=== PATIENT | male | born 2000 | race African-American/Black ===

== ENCOUNTER → 2021-08-25 | Day surgery (SDC) | payer BC ==
[~2021-08-25] MED LIST: BUPIVACAINE HCL 0.25% 10ML MPF VIAL INJ ONE; HYDROCODON-ACE1 EAC9 PO; LIDOCAINE 2% /EPINEPHRINE 20 ML SDV INJ ONE; ONDANSETRON HCL INJ 2MG/ML 2ML 2 MG/ML VIAL ONE; TYLENOL WITH CODEINE PO
[2021-08-25 18:30] VITALS: BP 152/86
== END | disposition home or self-care (01) ==
LOC: OR 06:58
PROVIDERS: ATTEND Orthopaedic Surgery
DX: S83.512A Sprain of anterior cruciate ligament of left knee, initial encounter (principal); S83.242A Other tear of medial meniscus, current injury, left knee, initial encounter; S83.282A Other tear of lateral meniscus, current injury, left knee, initial encounter; M65.9 Synovitis and tenosynovitis, unspecified; Z72.0 Tobacco use; X58.XXXA Exposure to other specified factors, initial encounter; Y93.67 Activity, basketball; Y92.009 Unspecified place in unspecified non-institutional (private) residence as the place of occurrence of the external cause; Y99.8 Other external cause status; Z01.812 Encounter for preprocedural laboratory examination; Z20.822 Contact with and (suspected) exposure to COVID-19
CPT/HCPCS: 0223U; 29879; 29882; 29888; 36415; C1713 ×4; C1769; C1776; J0690; J2001; J2405